=== PATIENT | female | born 1960 | race African-American/Black ===

== ENCOUNTER 2018-06-20 11:04 | Day surgery (SDC) | payer BC ==
[2018-06-16 12:15] VITALS: BMI 27.3
[2018-06-20] MEDS ORDERED: methylPREDNISolone ACET (DEPO) 40 MG/1 ML VIAL ONE ×2 (13:38→13:39)
[2018-06-20] MEDS ORDERED: BUPIVACAINE HCL 0.25% 125 MG/50 ML VIAL ONE (13:38)
[2018-06-20] MEDS ORDERED: PROPOFOL 20 ML ONE (13:39)
[2018-06-20] MEDS ORDERED: MIDAZOLAM HCL 2 MG/2 ML SINGLE DOSE VIAL ONE (13:40)
[2018-06-20] MEDS ORDERED: ceFAZolin SODIUM 1 GM VIAL ONE ×2 (14:14→14:29)
[2018-06-20] MEDS ORDERED: CLINDAMYCIN PHOSPHATE 600 MG/4 ML VIAL ONE (14:28)
--- NOTE | 2018-06-20 15:16 | PN ---
Progress Note (short form) - Note Progress Note: 57F s/p SALK POD #0. -Pain control: Percocet, Duexis ordered to patient's pharmacy. -WBAT LLE. -f/u post-op trial of void. -Diet as tolerated. -Keep dressing clean & dry; d/c on Saturday & place waterproof Band-Aids over incision sites. -Cane vs crutches. -f/u [facility] [place] office 06/27/2018; call for appointment; . Rico Lal MD (Orthopaedic Surgery).
--- NOTE | 2018-06-20 15:18 | OP ---
Operative Note - Note: Operative Date: 06/20/18 Pre-Operative Diagnosis: Chondrocalcinosis left knee Operation: Surgical arthroscopy left knee. Intra-articular injection (2cc depomedrol 40mg/mL & 10cc 0.25% marcaine) Findings: Tri-compartment chondrocalcinosis left knee Post-Operative Diagnosis: Same as Pre-op Surgeon: Rico Lal Solar Design Engineer: Jonnie Lal Anesthesiologist/JOB FOREMAN: Jay Vidal Anesthesia: General Estimated Blood Loss (mls): 10 Fluid Volume Replaced (mls): 800 (Crystalloid) Operative Report Dictated: Yes
[2018-06-20] MEDS ORDERED: oxyCODONE HCL 5 MG TABLET PO PRN (15:19)
[2018-06-20] MEDS ORDERED: ONDANSETRON 4 MG/2 ML VIAL IVPUSH PRN (15:19)
[2018-06-20] MEDS ORDERED: LACTATED RINGERS SOLUTION 1,000 ML IV SCH (15:30)
[2018-06-20] MEDS ORDERED: oxyCODONE HCL 5 MG TABLET ONE (16:45)
[2018-06-20 17:03] VITALS: BP 133/86; PULSE 77; TEMP 97.8
--- NOTE | 2018-06-23 08:55 | OP ---
Date of Operation: 06/20/2018 Surgeon: Rico Lal MD Pre-Operative Diagnosis: 1. Left knee chondrocalcinosis Post-Operative Diagnosis: Left knee: 1. Chondrocalcinosis 2. Diffuse crystal arthropathy (tri-compartment) Surgical Procedure: Left knee: 1. Surgical arthroscopy 2. Irrigation and debridement 3. Intra-articular (large joint) injection with 10cc 0.25% Marcaine and 2cc depomedrol (40mg/mL). Anesthesia: General (LMA). Position: Supine. Incision: Standard anterolateral knee arthroscopy portal. Tourniquet: Not utilized. Estimated Blood Loss: 0cc. Intravenous Fluid: 800 crystalloid. Specimens: None. Drains: None. Complications: None. Urine output: None. Bacteriology: None. Transfusions: None. Closure: 3-0 Nylon. Indications: The patient was indicated for a surgical arthroscopy of the left knee with debridement to facilitate improved motion and mobilization, to prevent complications associated with a sedentary lifestyle, and to treat the crystalline arthropathy of her knee. The patient was identified in the holding area by her armband. A long discussion was held with the patient regarding the risks, benefits and alternatives of the above-named procedure. Risks include but are not limited to: pain, bleeding, infection, damage to surrounding structures (including nerves, blood vessels, skin, ligaments, tendons and bone), wound complications, need for further surgery, blood clots, myocardial infarction, pulmonary embolism, anaesthesia complications, compartment syndrome, limb loss, limp, loss of function, and . Benefits as mentioned above. Alternatives include no surgery. All questions were answered. The patient and her family understood and agreed to the procedure. Informed consent was obtained, witnessed and verified. The patients correct operative limb - the left lower extremity - was marked, and the patient was taken to the operating room after being seen by the anesthesia and nursing staff. Procedure: The patient was brought into the operating room, placed on the OR table and secured with a safety strap. Consent and the operative site was again verified with the patient and nursing and anaesthesia staff. Anaesthesia was then administered without complication. 2g IV Ancef were administered. A time out was done led by me, the attending surgeon. The patient was positioned with bony prominences well padded, a tourniquet was placed proximally and set to 250mmHg, and the left thigh was secured in a well- padded leg house. The operative limb was prepped in standard sterile fashion using betadine prep & scrub, wiped off with alcohol, and then DuraPrep applied. The operative limb was then free draped. Time out was again done, the tourniquet was not inflated, and the case began. Surface anatomy of the knee was drawn, marking the patella, patellar tendon, and medial & lateral joint lines. With the knee flexed to 45 degrees, a standard anterolateral arthroscopy portal was made using an 11 blade. A blunt trocar was then inserted into the knee at the same angle as the incision. The blunt trocar was then slipped into the suprapatellar pouch as the knee was slowly extended. The trocar was removed through its overlying canula, and the arthroscope was inserted in its place. The fluid inflow, which had already been primed, was then attached to the canula along with the outflow suction tubing. The knee was then insufflated with normal saline solution. The suprapatellar pouch was then inspected with immediate evidence of synovitis. The lateral retro-patellar surface revealed Outerbridge Grade 2 chondromalacia with superficial fissuring. The trochlear groove demonstrated Outerbridge Grade 2 chondromalacia with superficial fissures visible. The patellofemoral articulation appeared otherwise congruous. Next, the arthroscope was delivered into the medial gutter of the knee as the knee was slowly flexed. No loose bodies were seen. With gentle valgus force applied to the knee, the arthroscope was slipped into the medial compartment. Diffuse crystlline deposition was immediately seen on both sides of the joint and on the medial meniscus. The posterior horn of the medial meniscus was degenerative. Grade 3 chondromalacia of the medial femoral condyle was seen with patches of deep fissuring. Next, the arthroscope was delivered into the intercondylar notch. The ACL was visualized and appeared intact but contained crystal deposits. The PCL was not visualized. Gentle varus stress was applied to the knee as the arthroscope was delivered into the lateral compartment of the knee. Grade 3 chondromalacia of the lateral tibial plateau was noted with deep fissures. The arthroscope was then delivered into the lateral gutter of the knee where no loose bodies were seen. The arthroscope was then returned to the suprapatellar pouch as the knee was gently extended. The knee was irrigated with 2-3L of normal saline solution. All fluid was suctioned out of the knee. An intra-articular injection consisting of 10mL of 0.25% Marcaine with 2mL of Depo-Medrol (40 mg/mL) was injected into the knee. Hemostasis was assured, and the incision was closed primarily using 3-0 nylon sutures in figure-8 fashion. Xeroform and a sterile, compressive dressing was applied. The sponge and needle counts were correct at the end of the case and I the attending was present and scrubbed throughout the case. The patient was then transferred to the recovery room in stable condition, as per the anesthesiology team, having tolerated the procedure well. Intra-operative photographs were captured using the arthroscope at numerous steps throughout the case. Rico Lal MD [id number]
== END 2018-06-20 17:10 | disposition home or self-care (01) ==
LOC: FASU 11:04
PROVIDERS: ATTEND Orthopaedic Surgery Adult Reconstructive Orthopaedic Surgery
PROC: 3E0U3BZ Introduction of Anesthetic Agent into Joints, Percutaneous Approach (ICD-10-PCS; 2018-06-20)
PROC: 3E0433Z Introduction of Anti-inflammatory into Central Vein, Percutaneous Approach (ICD-10-PCS; 2018-06-20)
PROC: 0SCD4ZZ Extirpation of Matter from Left Knee Joint, Percutaneous Endoscopic Approach (ICD-10-PCS; principal; 2018-06-20 14:41)
DX: M11.262 Other chondrocalcinosis, left knee (principal); M12.862 Other specific arthropathies, not elsewhere classified, left knee
CPT/HCPCS: 20610; 29877; G0289; 82962; 94760